=== PATIENT | male | born 1985 | race Caucasian/White ===

== ENCOUNTER 2018-01-18 17:44 | Emergency (ER) | payer SELFPAY ==
[~2018-01-18] VITALS: Ht 175.3 cm; Wt 90.0 kg
[2018-01-18 18:10] VITALS: BP 110/56; PULSE 60; RESP 18; TEMP 98; O2SAT 98
--- NOTE | 2018-01-18 18:16 | PD ---
HPI Chief Complaint: Alcohol/Drug Intoxication Time Seen by Provider: 18:12 Travel History International Travel<30 days: No Contact w/Intl Traveler<30days: No Traveled to known affect area: No History of Present Illness HPI Is a 32-year-old male presents to the emergency department after passing of the bar. Patient states drink too much alcohol. He initially was confused with EMS. Denies any trauma. No complaints now. No medical history. History Past Medical History Medical History: Denies Significant Hx Social History Tobacco Use: No Review of Systems ROS Limitations: Intoxication Physical Exam Narrative GENERAL: Well-appearing 32-year-old man, no acute distress. SKIN: Focused skin assessment warm/dry. HEAD: No evidence of trauma. EYES: Pupils equal and round. No scleral icterus. No injection or drainage. ENT: No nasal bleeding or discharge. Mucous membranes pink and moist. NECK: Trachea midline. No JVD. CARDIOVASCULAR: Regular rate and rhythm. No murmur appreciated. RESPIRATORY: No accessory muscle use. Clear to auscultation. Breath sounds equal bilaterally. GASTROINTESTINAL: Abdomen soft, non-tender, nondistended. Hepatic and splenic margins not palpable. MUSCULOSKELETAL: No obvious deformities. No clubbing. No cyanosis. No edema. NEUROLOGICAL: Awake, decreased alertness, clinically intoxicated. No obvious cranial nerve deficits. Motor grossly within normal limits. Slurred speech. Data Data Last Documented VS Vital Signs Date Time Temp Pulse Resp B/P (MAP) Pulse Ox O2 Delivery O2 Flow Rate FiO2 01/18/18 18:12 68 18 98 Room Air 01/18/18 18:10 98.0 110/56 (74) MDM Medical Decision Making Medical Screen Exam Complete: Yes Emergency Medical Condition: Yes Differential Diagnosis Intoxication, head injury, other Narrative Course Medical decision making INITIAL calls a 32-year-old man presents emerged from intoxicated, passed out at a bar, no evidence of trauma, looks well, awake and talking. Call his parents to come and get him. Diagnosis Primary Impression: Alcohol intoxication Additional Instructions: Avoid excessive alcohol use. Return to the emergency department for any new or worsening symptoms. Med/Other Pt SpecificInfo: No Change to Meds Disposition: 01 DISCHARGE HOME Condition: Stable Jerome Dobbs MD Jan 18, 2018 18:16
== END 2018-01-18 20:11 | disposition home or self-care (01) ==
LOC: NEPD 17:44
DX: F10.129 Alcohol abuse with intoxication, unspecified (principal); R41.0 Disorientation, unspecified
CPT/HCPCS: 99282